=== PATIENT | female | born 1965 | race Caucasian/White ===

== ENCOUNTER → 2021-02-11 09:10 | Outpatient (CLI) | payer OTHER, SELFPAY ==
--- NOTE | 2021-02-11 | DI.MRI.S_ITS ---
PROCEDURE: MR ANKLE LT WO CON INDICATIONS: Pain in left ankle and joints of left foot TECHNIQUE: Noncontrast sagittal T1 spin echo and T2 fast spin echo with fat saturation, axial proton density fast spin echo and T2 fast spin echo with fat saturation, coronal T1 spin echo and T2 fast spin echo with fat saturation through the ankle/hindfoot. COMPARISON: None. FINDINGS: Image quality: Excellent. Bones and joints: Osteoarthritic changes are noted throughout midfoot and hindfoot joints with mild edema seen in inferior aspect of anterior talus adjacent to subtalar joint. Likely small osteochondral injury involving proximal portion of the cuboid adjacent to calcaneocuboid joint is also seen. No discrete fracture line is seen.. No hindfoot coalitions. There is also suggestion of small osteochondral injury involving medial periphery of talar dome measures 3 millimeter in size. No pathologic joint effusions. Medial structures: The posterior tibialis is thickened at the level of anterior talus/talonavicular joint with small to moderate amount of fluid distending tendon sheaths consistent with low-grade tenosynovitis. flexor digitorum longus, and flexor hallucis longus tendons are intact. The posterior tibial neurovascular bundle appears normal within the tarsal tunnel, without extrinsic mass effect. The deep layer (anterior and posterior tibiotalar ligaments) and superficial layer (tibionavicular, tibiospring, and tibiocalcaneal ligaments) of the deltoid ligament appear normal. The spring ligament components (superomedial calcaneonavicular, medioplantar oblique calcaneonavicular, and inferoplantar longitudinal ligaments) are intact. Lateral structures: The anterior talofibular, calcaneofibular, and posterior talofibular ligaments appear intact. More superiorly, the anterior and posterior tibiofibular ligaments appear intact, as is the intermalleolar ligament. The tibiofibular syndesmosis is normal in width at 2 mm or less. The peroneus longus and brevis tendons demonstrate normal location and morphology. Adjacent bony peroneal tubercle and retrotrochlear prominence are normal in size. The sinus tarsi demonstrates normal fatty signal, without edema, fibrosis, or cyst formation. Visualized sinus tarsi components (cervical ligament, interosseous talocalcaneal ligament, roots of the inferior extensor retinaculum) appear normal. The calcaneonavicular and calcaneocuboid components of the bifurcate ligament appear intact. The dorsal calcaneocuboid ligament appears intact. Anterior structures: The tibialis anterior, extensor hallucis longus, and extensor digitorum longus tendons appear intact. The dorsal talonavicular ligament appears intact. Posterior and plantar structures: Achilles tendon is intact. Medial and lateral bands of the plantar fascia are of normal thickness. No abductor digiti quinti muscle atrophy to suggest Loyd neuropathy. IMPRESSION: 1. Erus-[id number] osteoarthritic changes throughout midfoot and hindfoot joints with suggestion of tiny osteochondral injuries involving medial periphery of talar dome and proximal portion of cuboid adjacent to calcaneocuboid joint. No fracture or dislocation. 2. Low-grade tenosynovitis involving posterior tibialis tendon at the level of anterior talus/talonavicular joint. 3. Medial and lateral ankle ligaments are grossly intact. Dictated by: John Mtz M.D. on 02/11/2021 at 11:36 Approved by: John Mtz M.D. on 02/11/2021 at 12:05
== END ==
PROVIDERS: PCP Physician Assistant Medical; Referring Provider Podiatrist; Visit Provider Podiatrist
DX: M25.572 Pain in left ankle and joints of left foot (principal); M65.872 Other synovitis and tenosynovitis, left ankle and foot
CPT/HCPCS: 73721

== ENCOUNTER → 2024-08-31 13:20 | Outpatient (ROUT) | payer OTHER, SELFPAY ==
[2024-08-31 13:44] LABS: Appearance Urine UA CLEAR; Bilirubin Urine UA NEGATIVE (NEGATIVE); Color Urine UA YELLOW; Glucose Urine UA NEGATIVE (Negative); Ketones Urine UA NEGATIVE (NEGATIVE); Leukocyte Esterase Urine UA NEGATIVE (NEGATIVE); Nitrite Urine UA NEGATIVE (Negative); Occult Blood Urine UA NEGATIVE (Negative); Protein Urine UA NEGATIVE (Negative); Urobilinogen Urine UA 0.2 E.U./dL (0.2)
[2024-08-31 14:03] LABS: Bacteria Urine Moderate (10-30); Culture Indicated Urine Cult Not Indicated; RBC Urine None Seen (0-5/HPF); Squamous Epithelial Cell Urine 1-5 /HPF (0-5/HPF); Urine Volume 10mL (spun); WBC Urine 1-5/HPF (0-5/HPF)
== END ==
PROVIDERS: PCP Physician Assistant Medical; Visit Provider Naturopath
DX: N30.00 Acute cystitis without hematuria (principal)
CPT/HCPCS: 81001

== ENCOUNTER → 2025-07-26 08:27 | Outpatient (CLI) | payer OTHER, SELFPAY ==
--- NOTE | 2025-07-26 08:28 | DI.RAD.S_ITS ---
PROCEDURE: XR KNEE RT 3V INDICATIONS: chronic R knee pain TECHNIQUE: 3 views of the knee were acquired. COMPARISON: None. FINDINGS: Bones: No fractures or dislocations. No suspicious bony lesions. Patellofemoral joint space narrowing with osteophytosis. Curvilinear calcification with well corticated margins along the medial femoral condyle. Soft tissues: No joint effusion. No suspicious soft tissue calcifications. IMPRESSION: Suspected remote MCL avulsion injury of the patellar insertion site. Mild patellofemoral osteoarthritis. Dictated by: Marty Garcia M.D. on 07/27/2025 at 14:45 Approved by: Marty Garcia M.D. on 07/27/2025 at 14:46
== END ==
PROVIDERS: PCP Family Medicine; Referring Provider Family Medicine; Visit Provider Family Medicine
DX: M17.11 Unilateral primary osteoarthritis, right knee (principal); M25.561 Pain in right knee; G89.29 Other chronic pain
CPT/HCPCS: 73562